=== PATIENT | female | born 1965 | race Caucasian/White ===

== ENCOUNTER → 2016-12-24 | Outpatient (CLI) | payer BC ==
--- NOTE | 2016-12-24 13:32 | KCIC ---
PROCEDURE MRI neck without contrast. HISTORY Left neck mass for 5-6 years. Patient states that may very slightly in size from time to time. TECHNIQUE 3 plane T1, 3 plane STIR, and axial T2 gradient sequences are provided. COMPARISON Ultrasound from September 24, 2016. FINDINGS Area of concern was bracketed by markers. Within the subcutaneous tissues is an oval lesion corresponding to the area of palpable concern measuring 2.1 by 0.9 by 2.9 centimeters in size. This follows fat signal characteristics on all sequences. Hypointense potential capsule is noted. Imaging appearance is most suggestive of lipoma. Low grade liposarcoma can have overlapping characteristics with a benign lipoma, cannot be excluded. Sub centimeter lymph nodes are noted along the cervical chains. Multiple retention cysts are noted in the right maxillary sinus. Small retention cyst may be present in the nasopharynx on the left. Mild degenerative changes are noted in the spine, exam was protocolled to evaluate soft tissues, not the spinal canal. IMPRESSION Fat signal intensity oval-shaped lesion at the area of concern, imaging characteristics most suggestive of lipoma. Low-grade liposarcomas overlap in imaging characteristics with lipomas, cannot be excluded. Electronically signed by: Jose Norman MD (December 24, 2016 13:31:15)
== END | disposition home or self-care (01) ==
LOC: KCIC MRI 10:42
PROVIDERS: ATTEND Nurse Practitioner Family
DX: C76.0 Malignant neoplasm of head, face and neck (principal)
CPT/HCPCS: 70540